=== PATIENT | female | born 2005 | race Two or more races ===

== ENCOUNTER 2023-12-17 02:41 | Emergency (ER) | payer MEDICAID, OTHER ==
[~2023-12-17] VITALS: Ht 154.9 cm; Wt 75.2 kg
[2023-12-17] MEDS: SODIUM CHLORIDE 0.9% 1,000 ML IV ONE (03:23)
[2023-12-17] MEDS: FAMOTIDINE (10MG/ML) 2ML VL IV ONE (03:23)
[2023-12-17] MEDS: ONDANSETRON HCL 4 MG/2 ML VIAL IV ONE (03:24)
[2023-12-17 03:51] LABS: Basophils # (auto) 0.1 10 ^3/uL (0-0.2); Basophils % (auto) 0.4 % (0.0-2.0); Eosinophils # (auto) 0.1 10 ^3/uL (0-0.8); Eosinophils % (auto) 0.4 % (0.0-7.0); Hematocrit 39.6 % (36.0-46.0); Hemoglobin 13.5 g/dL (12.2-16.2); Lymphocytes # (auto) 2.6 10 ^3/uL (0.4-5.4); Lymphocytes % (auto) 16.5 % (10.0-50.0); Mean Corpuscular Hemoglobin 28.3 pg (28.0-32.0); Mean Corpuscular Hgb Conc. 34.2 g/dL (32.0-36.0); Mean Corpuscular Volume 82.6 fL (80.0-100.0); Monocytes # (auto) 0.7 10 ^3/uL (0-1.3); Monocytes % (auto) 4.2 % (0.0-12.0); Neutrophils # (auto) 12.5 10 ^3/uL (1.6-8.6); Neutrophils % (auto) 78.5 % (37.0-80.0); Platelet Count (auto) 415 10^3/uL (140-450); Red Blood Cells 4.79 10^6/uL (4.0-5.20); Red Cell Distribution Width 13.8 % (11.8-14.3); White Blood Cell 15.9 10^3/uL (4.4-10.8)
[2023-12-17 04:04] LABS: Alkaline Phosphatase 73 U/L (46-116); Anion Gap 7 (5-15); Aspartate Aminotransferase 13 U/L (13-40); BUN/Creatinine Ratio 11.2 (10.0-20.0); Blood Urea Nitrogen 10 mg/dL (9-23); Calcium 10.2 mg/dL (8.7-10.4); Carbon Dioxide 27 mmol/L (20-31); Chloride 104 mmol/L (98-107); Glucose 120 mg/dL (74-106); Potassium 3.5 mmol/L (3.5-5.1); Sodium 138 mmol/L (136-145)
[2023-12-17 04:05] LABS: Bilirubin, Total 0.4 mg/dL (0.2-1.0); Total Protein 8.6 g/dL (5.7-8.2)
[2023-12-17 04:06] LABS: Alanine Aminotransferase < 9 U/L (7-40)
[2023-12-17 04:48] LABS: Urine Bacteria None Seen /hpf (None Seen)
[2023-12-17 04:56] LABS: Urine Blood Negative /uL (Negative); Urine Clarity Clear (Clear); Urine Color Yellow (Yellow); Urine Mucus FEW (None Seen); Urine Protein, UAD TRACE (Negative); Urine Specific Gravity 1.029 (1.001-1.035); Urine Urobilinogen Normal (Negative); Urine WBC 9 /hpf (0 - 5); Urine pH 5.5 (5.0-9.0)
[2023-12-17] MEDS ORDERED: ZOFR4T PO (05:17)
[2023-12-17 05:27] VITALS: BP 120/70; PULSE 82; RESP 18; TEMP 98.7; O2SAT 99
== END 2023-12-17 05:29 | disposition home or self-care (01) ==
LOC: ER 02:41
DX: A08.4 Viral intestinal infection, unspecified (principal); R42 Dizziness and giddiness; R06.02 Shortness of breath; R55 Syncope and collapse; Z32.02 Encounter for pregnancy test, result negative
CPT/HCPCS: 36415; 80053; 81001; 81025; 85025; 96361; 96374; 96375; 99284; J2405; J3490; J7030